=== PATIENT | male | born 1940 | race Caucasian/White ===

== ENCOUNTER 2018-04-20 13:38 | Emergency (ER) | payer OTHER, BC ==
[~2018-04-20] VITALS: Ht 172.7 cm; Wt 130.0 kg
[2018-04-20 14:45] LABS: BASOPHIL (%) 0.3 % (0-1); EOSINOPHIL (%) 2.5 % (0-5); EOSINOPHIL COUNT 0.2 K/uL (0-0.3); HEMATOCRIT 39.6 % (38.0-50.0); HEMOGLOBIN 13.6 G/DL (12.5-16.6); IMMATURE GRANULOCYTE (%) 0.6 % (0.0-0.7); LYMPHOCYTE (%) 21.4 % (15-42); LYMPHOCYTE COUNT 1.9 K/uL (1.0-2.8); MCH 31.1 PG (29.0-34.0); MCHC 34.3 G/DL (30.0-36.0); MCV 90.6 FL (86-99); MONOCYTE (%) 8.6 % (3-12); MONOCYTE COUNT 0.8 K/uL (0-0.8); NEUTROPHIL (%) 66.6 % (45-76); NEUTROPHIL COUNT 5.8 K/uL (1.8-6.4); PLATELET COUNT 190 K/uL (156-360); RBC DIS.WIDTH-CV 12.8 % (11.8-14.6); RBC DIS.WIDTH-SD 42.6 % (39-53); RED BLOOD COUNT 4.37 M/uL (4.00-5.50); WHITE BLOOD COUNT 8.7 K/uL (4.1-10.2)
[2018-04-20 14:52] LABS: INTER. NORMALIZED RATIO 1.4
[2018-04-20 14:54] LABS: ALBUMIN 4.1 g/dL (3.2-4.8); CHLORIDE 106 mEq/L (99-109); POTASSIUM 4.1 mEq/L (3.7-5.4); PTT 28.9 SEC (25-37); SODIUM 137 mEq/L (136-147)
[2018-04-20 14:55] LABS: MAGNESIUM 2.4 mg/dL (1.3-2.7)
[2018-04-20 14:56] LABS: GLUCOSE 109 mg/dL (70-99); TOTAL PROTEIN 7.1 g/dL (6.4-8.3)
[2018-04-20 14:58] LABS: TOTAL BILIRUBIN 0.5 mg/dL (0.0-1.0)
[2018-04-20 15:00] LABS: ALKALINE PHOSPHATASE 60 IU/L (3-129); CREATININE 1.1 mg/dL (0.6-1.3); GFR ESTIMATE (CALCULATED) > 59 mL/min/ (58.99-99999)
[2018-04-20 15:01] LABS: UREA NITROGEN (BUN) 21 mg/dL (9-23)
[2018-04-20 15:02] LABS: AST (GOT) 23 IU/L (2-34)
[2018-04-20 15:03] LABS: ALT (GPT) 23 IU/L (3-49)
[2018-04-20 15:05] LABS: TROP-I INTERPRETATION NEGATIVE; TROPONIN-I 0.02 ng/mL (0.0-0.30)
[2018-04-20 17:04] VITALS: BP 116/74
== END 2018-04-20 17:05 | disposition home or self-care (01) ==
LOC: EME 13:38
PROVIDERS: Emergency Medicine
DX: R55 Syncope and collapse (principal); Z98.890 Other specified postprocedural states; Z79.01 Long term (current) use of anticoagulants
CPT/HCPCS: 70450; 80053; 83735; 84484; 85025; 85610; 85730; 93005; 93880; 99281; 99285